=== PATIENT | male | born 1995 | race Caucasian/White ===

== ENCOUNTER 2018-05-29 14:47 | Emergency (ER) | payer OTHER ==
[2018-05-29] MEDS ORDERED: RANITIDINE 50 MG/2 ML VIAL IVP ONE (14:53)
[2018-05-29] MEDS ORDERED: NS 1,000 ML IV ONE (14:53)
[2018-05-29] MEDS ORDERED: methylPREDNISolone SOD SUCC 125 MG/2 ML VIAL IVP ONE (14:53)
--- NOTE | 2018-05-29 14:57 | EDPHY ---
H & P Source: Patient, RN/MD, EMS Exam Limitations: No limitations Time Seen by Provider: 05/29/18 14:53 HPI/ROS: HPI: This is a 22-year-old male who presents with Chief Complaint: Allergic reaction, rash, difficulty breathing Location: Chest Quality: Rash, difficulty breathing Duration: 1 hr prior to arrival Signs and Symptoms: +shortness of breath at rest, + shortness of breath on exertion, no cough, no chest pain, no palpitations, no lower extremity edema, no wheezing, no orthopnea, no paroxysmal nocturnal dyspnea, no fever, no injury/ trauma, no hemoptysis, no carpal pedal spasms, no nausea, no vomiting Timing: Rapid onset, resolving Severity: Mild Context: Patient presents via EMS with concerns of allergic reaction. He reports that around 1:00 a.m. He had a coffee and believes that he may have been given coconut water or almond milk by mistake. After drinking the coffee he started to experience itchiness and broke out into a rash. He then developed shortness of breath at rest and on exertion. He denies nausea, vomiting, abdominal pain, difficulty talking, difficulty swallowing, wheezing. As a toddler he was tested for allergies and was positive for rag weed and cockroaches. No history of anaphylaxis and does not carry an EpiPen. Patient reports approximately 50% improvement of his symptoms since the Benadryl was given by EMS 10 min prior to arrival. Modifying Factors: IV Benadryl 50 mg given by EMS with moderate relief of symptoms Comment: ROS: A comprehensive 10 system review of systems is otherwise negative aside from elements mentioned in the history of present illness. MEDICAL/SURGICAL/SOCIAL HISTORY: Medical history: Generally healthy. Does not take any regular medications. Surgical history: Denies Social history: Employed. Originally from [place] and moved to [place] in September of 2017. Nonsmoker. Drinks alcohol socially. CONSTITUTIONAL: Sleepy from the Benadryl, young adult white male, polite and cooperative, awake and alert, no obvious distress HEENT: Atraumatic and normocephalic, PERRL, EOMI. Nares patent; no rhinorrhea; no nasal mucosal edema. Tympanic membranes clear. Oropharynx clear, no exudate and moist pink mucosa. Airway patent. No lymphadenopathy. No meningismus. Cardiovascular: Normal S1/S2, tachycardia, regular rhythm, without murmur rub or gallop. PULMONARY/CHEST: Symmetrical and nontender. Clear to auscultation bilaterally. Good air movement. No accessory muscle usage. ABDOMEN: Soft, nondistended, nontender, no rebound, no guarding, no peritoneal signs, no masses or organomegaly. No CVAT. EXTREMITIES: 2/2 pulses, strength 5/5, no deformities, no clubbing, no cyanosis or edema. NEUROLOGICAL: no focal neuro deficits. GCS 15. SKIN: Warm and dry, macular erythematous rash from midthoracic to collarbone that blanches with palpation. Good capillary refill. (Vernell Chu) Constitutional: Initial Vital Signs Temperature (C) 36.8 C 05/29/18 14:53 Heart Rate 108 H 05/29/18 14:53 Respiratory Rate 18 05/29/18 14:53 Blood Pressure 127/73 H 05/29/18 14:53 O2 Sat (%) 99 05/29/18 14:53 O2 Delivery Mode Room Air Allergies/Adverse Reactions: No Known Allergies Allergy (Unverified 05/29/18 14:53) Home Medications: Medication Instructions Recorded NK [No Known Home Meds] 05/29/18 Medical Decision Making ED Course/Re-evaluation: Vital signs reviewed and show mild tachycardia upon arrival. No hypoxia, no respiratory distress. Placed on alarm security or surveillance monitor. IV access placed by EMS; will give IV Solu-Medrol 125 mg and IV Zantac 50 mg 1600: Reassessed patient. Complete resolution of rash and patient asking to be discharged home. No signs of anaphylaxis, angioedema, respiratory distress. Vital signs improved at discharge. Tachycardia resolved. I do not believe that patient needs a prescription for EpiPen at this time. This patient was seen under the supervision of my secondary supervising physician. I evaluated care for this patient with attending. (Vernell Chu) I did not see this patient while he was in the emergency department. However his care was discussed with the PA while the patient was in the department. I agree with treatment plan and management (Kartik Cerda) Differential Diagnosis: Differential diagnosis includes but is not limited to allergic reaction, anaphylaxis, angioedema, mast cell activation syndrome. (Vernell Chu) - Data Points Medications Given: Discontinued Medications Sodium Chloride (Ns) 1,000 mls @ 0 mls/hr IV ONCE ONE; Wide Open PRN Reason: Protocol Stop: 05/29/18 14:54 Last Admin: 05/29/18 14:59 Dose: 1,000 mls Methylprednisolone Sodium Succinate (Solu-Medrol) 125 mg IVP EDNOW ONE Stop: 05/29/18 14:54 Last Admin: 05/29/18 14:59 Dose: 125 mg Ranitidine HCl (Zantac) 50 mg IVP EDNOW ONE Stop: 05/29/18 14:54 Last Admin: 05/29/18 14:59 Dose: 50 mg Departure - Departure Disposition: Home, Routine, Self-Care Clinical Impression: Allergic reaction Qualifiers: Encounter type: initial encounter Qualified Code(s): T78.40XA - Allergy, unspecified, initial encounter Condition: Good Instructions: Food Allergy (ED) Additional Instructions: Please take Benadryl 25-50 mg every 4 hr as needed for itching, allergic reaction. Please avoid any allergens. Establish care at [facility]. Referrals: [facility],. [Clinic] - As per Instructions
[2018-05-29 16:27] VITALS: BP 105/72
== END 2018-05-29 16:28 | disposition home or self-care (01) ==
LOC: EDUNIT#
DX: T78.40XA Allergy, unspecified, initial encounter (principal); R21 Rash and other nonspecific skin eruption; R00.0 Tachycardia, unspecified; R06.02 Shortness of breath
CPT/HCPCS: 96374; J2780; J2930